=== PATIENT | female | born 1980 | race Caucasian/White ===

== ENCOUNTER 2020-12-29 08:36 | Emergency (ER) | payer OTHER ==
[~2020-12-29] VITALS: Ht 172.7 cm; Wt 75.0 kg
[2020-12-29 10:10] VITALS: BP 115/71
== END 2020-12-29 10:10 | disposition home or self-care (01) | DRG 563 ==
LOC: ED 08:36
DX: S93.401A Sprain of unspecified ligament of right ankle, initial encounter (principal); W10.8XXA Fall (on) (from) other stairs and steps, initial encounter; Y92.028 Other place in mobile home as the place of occurrence of the external cause